=== PATIENT | male | born 1990 | race Caucasian/White ===

== ENCOUNTER 2023-08-28 17:20 | Emergency (ER) | payer BC, OTHER ==
--- NOTE | 2023-08-28 17:32 | ED ---
Lower Extremity Injury HPI - General Source: patient, RN notes reviewed Mode of arrival: ambulatory Limitations: no limitations <Karlie Richardson - Last Filed: 08/28/23 17:31> - General Source: RN notes reviewed <Belai Bear - Last Filed: 08/28/23 20:36> - General Chief Complaint: Extremity Injury, Lower Stated Complaint: L Foot Injury-stepped on nail Time Seen by Provider: 08/28/23 17:32 - History of Present Illness Initial Comments: Quick note: 33-year-old male presented to the ER with a chief complaint of left foot injury. Patient was working out in the ER and accidentally stepped on a derrick nail. He was wearing a croc during the incident. Tetanus status unknown. (Karlie Richardson) 33-year-old male presenting to the ER with chief complaint of left foot injury. States he was working in his yard and accidentally stepped on a derrick nail. He was wearing crocs during the incident but reports the nail penetrated through the shoe and into the bottom of his foot. Last tetanus unknown. He is able to bear weight. (Belia Bear) - Related Data Previous Rx's Medication Instructions Recorded Levofloxacin [Levaquin] 750 mg PO DAILY 5 Days #5 tab 08/28/23 amLODIPine 10 mg PO DAILY 30 Days #30 tab 08/28/23 Allergies Allergy/AdvReac Type Severity Reaction Status Date / Time bacitracin Allergy Unknown Rash/Hives Verified 08/28/23 17:30 Review of Systems ROS Other: All systems not noted in ROS Statement are negative. <Karlie Richardson - Last Filed: 08/28/23 17:31> ROS Other: All systems not noted in ROS Statement are negative. <Belia Bear - Last Filed: 08/28/23 20:36> ROS Statement: Those systems with pertinent positive or pertinent negative responses have been documented in the HPI. Past Medical History Past Medical History: No Reported History History of Any Multi-Drug Resistant Organisms: None Reported Past Surgical History: No Surgical Hx Reported Past Psychological History: No Psychological Hx Reported Past Alcohol Use History: Occasional Past Drug Use History: None Reported <Karlie Richardson - Last Filed: 08/28/23 17:31> General Exam Limitations: no limitations <Karlie Richardson - Last Filed: 08/28/23 17:31> General appearance: alert, in no apparent distress Head exam: Present: atraumatic, normocephalic, normal inspection Left Ankle exam: Present: normal inspection, full ROM. Absent: tenderness, swelling Foot/Toe exam: Present: full ROM, puncture wound (Pinpoint puncture wound present on ventral aspect of left foot with minimal dried blood surrounding wound.). Absent: tenderness, laceration, foreign body Neurovascular tendon exam: Present: no vascular compromise. Absent: abnormal cap refill, sensory deficit <Belia Bear - Last Filed: 08/28/23 20:36> - General Exam Comments Initial Comments: Visual Physical Exam Vital signs reviewed General: Well-appearing, nontoxic, no acute distress. Head: Normocephalic, atraumatic Eyes: PERRLA, EOMI ENT: Airway patent Chest: Nonlabored breathing Skin: No visual rash, normal skin tone Neuro: Alert and oriented 3 Musculoskeletal: No gross abnormalities (Karlie Richardson) Course Vital Signs 08/28/23 08/28/23 17:28 20:06 Temperature 98.5 F Pulse Rate 79 84 Respiratory 18 20 Rate Blood Pressure 181/133 194/146 O2 Sat by Pulse 98 99 Oximetry Medical Decision Making <Karlie Richardson - Last Filed: 08/28/23 17:31> <Belia Bear - Last Filed: 08/28/23 20:36> - Medical Decision Making I performed the quick note portion of this chart. Electronically signed by Karlie Richardson PA-C (Karlie Richardson) Was pt. sent in by a medical professional or institution ([facility], CASING WORKER, urgent care, hospital, or usp...) When possible be specific @ -No Did you speak to anyone other than the patient for history (EMS, parent, family, police, friend...)? What history was obtained from this source @ -No Did you review nursing and triage notes (agree or disagree)? Why? @ -I reviewed and agree with nursing and triage notes Were old charts reviewed (outside hosp., previous admission, EMS record, old EKG, old radiological studies, urgent care reports/EKG's, usp records)? Report findings @ -No old charts were reviewed Differential Diagnosis (chest pain, altered mental status, abdominal pain women, abdominal pain men, vaginal bleeding, weakness, fever, dyspnea, syncope, headache, dizziness, GI bleed, back pain, seizure, CVA, palpatations, mental health, musculoskeletal)? @ -Differential Musculoskeletal Laceration, puncture wound, muscular strain, contusion, ligament sprain, fracture, arthritis, septic arthritis, bursitis, cellulitis, muscle spasm, nerve compression, DVT, arterial occlusion, herpes zoster, electrolyte abnormality, tumor.... This is not meant to be in all inclusive list EKG interpreted by me (3pts min.). @ -None X-rays interpreted by me (1pt min.). @ -X-ray of left foot revealed no radiopaque foreign body CT interpreted by me (1pt min.). @ -None done U/S interpreted by me (1pt. min.). @ -None done What testing was considered but not performed or refused? (CT, X-rays, U/S, labs)? Why? @ -None What meds were considered but not given or refused? Why? @ -None Did you discuss the management of the patient with other professionals (professionals i.e. , PA, CASING WORKER, lab, RT, psych nurse, social worker health services, rope making machine operator, teacher, operations officer, airport location manager)? Give summary @ -No Was smoking cessation discussed for >3mins.? @ -No Was critical care preformed (if so, how long)? @ -No Were there social determinants of health that impacted care today? How? (Homelessness, low income, unemployed, alcoholism, drug addiction, transportation, low edu. Level, literacy, decrease access to med. care, fdc, rehab)? @ -No Was there de-escalation of care discussed even if they declined (Discuss DNR or withdrawal of care, Hospice)? DNR status @ -No What co-morbidities impacted this encounter? (DM, HTN, Smoking, COPD, CAD, Cancer, CVA, ARF, Chemo, Hep., AIDS, mental health diagnosis, sleep apnea, morbid obesity)? @ -None Was patient admitted / discharged? Hospital course, mention meds given and route, prescriptions, significant lab abnormalities, going to OR and other pertinent info. @ -Patient was discharged. Patient was seen and evaluated for puncture wound of left foot prior to arrival. Patient reports he accidentally stepped on a derrick nail. Vital signs are remarkable for blood pressure of 181/133. Patient denies any cardiopulmonary alarm symptoms. Patient is neurovascularly intact. X-ray of left foot revealed no radiopaque foreign body. Wound was thoroughly irrigated and soaked in iodine/saline solution. Tetanus was updated. Wound was dressed and wound care was discussed. Patient was prescribed levofloxacin. Repeat blood pressure is 194/146. Patient denies any history of hypertension. Patient was given oral dose of amlodipine. Strict cardiopulmonary alarm symptoms discussed with patient in detail and he shows understanding/ agrees to plan. Prescribed a month's supply of amlodipine and advised to follow-up with PCP as soon as possible. Discussed with patient the importance of obtaining control of blood pressure. Advised to monitor blood pressure at home with monitor. Case discussed with my ER attending Dr. Garces. Patient discharged in stable condition. Undiagnosed new problem with uncertain prognosis? @ -No Drug Therapy requiring intensive monitoring for toxicity (Heparin, Nitro, Insulin, Cardizem)? @ -No Were any procedures done? @ -No Diagnosis/symptom? @ -Puncture wound of left foot Acute, or Chronic, or Acute on Chronic? @ -Acute Uncomplicated (without systemic symptoms) or Complicated (systemic symptoms)? @ -Uncomplicated Side effects of treatment? @ -No Exacerbation, Progression, or Severe Exacerbation? @ -No Poses a threat to life or bodily function? How? (Chest pain, [place], [place], pneumonia, PE, COPD, DKA, ARF, appy, cholecystitis, CVA, Diverticulitis, Homicidal, Suicidal, threat to staff... and all critical care pts) @ -Low likelihood (Belia Bear) Disposition <Karlie Richardson - Last Filed: 08/28/23 17:31> Is patient prescribed a controlled substance at d/c from ED?: No Time of Disposition: 20:32 <Belia Bear - Last Filed: 08/28/23 20:36> Clinical Impression: Puncture wound of left foot, Hypertension Disposition: HOME SELF-CARE Condition: Stable Instructions (If sedation given, give patient instructions): Puncture Wound (ED), Hypertension (ED) Additional Instructions: Please take full course of levofloxacin. Take amlodipine daily for blood pressure. Please obtain blood pressure monitor (sold at most pharmacies) and log your blood pressure daily. Follow-up with PCP as soon as possible regarding blood pressure. Please return to the Emergency Department if symptoms worsen or any other concerns. Prescriptions: amLODIPine 10 mg PO DAILY 30 Days #30 tab Levofloxacin [Levaquin] 750 mg PO DAILY 5 Days #5 tab Referrals: None,Stated [Primary Care Provider] - 1-2 days
[2023-08-28] MEDS: DIPH,PERTUS(ACELL)TETVAC-LF 0.5 ML VIAL IM ONE (18:19)
--- NOTE | 2023-08-28 18:58 | XR ---
EXAMINATION TYPE: XR foot complete LT DATE OF EXAM: 08/28/2023 5:50 PM CLINICAL INDICATION:Male, 33 years old with history of Stepped on a derrick nail; [facility] COMPARISON: None TECHNIQUE: XR foot complete LT examined in the AP, oblique, and lateral projections. FINDINGS: No evidence of any acute osseous pathology. No evidence of soft tissue swelling. No radiopaque forei gn body. IMPRESSION: 1. No evidence of acute fracture. 2. No radiopaque foreign body.
[2023-08-28] MEDS: amLODIPine 10 MG TAB PO STA ×2 (20:39→21:00)
[2023-08-28 20:48] VITALS: BP 168/109; PULSE 83; RESP 22; TEMP 98.4
== END 2023-08-28 21:01 | disposition home or self-care (01) ==
LOC: EC 17:20
DX: S91.332A Puncture wound without foreign body, left foot, initial encounter (principal); I10 Essential (primary) hypertension; Z88.1 Allergy status to other antibiotic agents; Z23 Encounter for immunization; W45.0XXA Nail entering through skin, initial encounter; Y93.H2 Activity, gardening and landscaping; Y92.017 Garden or yard in single-family (private) house as the place of occurrence of the external cause
CPT/HCPCS: 90471; 90715; 99283

== ENCOUNTER 2023-09-19 16:51 | Emergency (ER) | payer BC, OTHER ==
--- NOTE | 2023-09-19 18:25 | ED ---
Nausea/Vomiting/Diarrhea HPI <Petra Marquez - Last Filed: 09/19/23 18:35> - General Source: patient, RN notes reviewed, old records reviewed Mode of arrival: ambulatory Limitations: no limitations <Spenser Bills - Last Filed: 09/19/23 21:15> - General Chief complaint: Nausea/Vomiting/Diarrhea Stated complaint: vomiting Time Seen by Provider: 09/19/23 17:51 - History of Present Illness Initial comments: 33-year-old male presents to the emergency department for evaluation of nausea and vomiting. Patient states that this started last night. He has had 3 episodes of vomiting. He states that over the past 2 days he has not had much of an appetite and does not eaten much. He does report that he was drinking soda and fells that he vomited this up. He denies any significant abdominal pain. (Petra Marquez) QN 33 male to the ER for evaluation today. Patient is presenting to the emergency room today for evaluation of nausea vomiting, patient presents with father who is very unhappy with his son being in the emergency department at this time, the son does think that he may have food poisoning of some sort. (Spenser Bills) - Related Data Previous Rx's Medication Instructions Recorded Levofloxacin [Levaquin] 750 mg PO DAILY 5 Days #5 tab 08/28/23 amLODIPine 10 mg PO DAILY 30 Days #30 tab 08/28/23 Allergies Allergy/AdvReac Type Severity Reaction Status Date / Time bacitracin Allergy Unknown Rash/Hives Verified 09/19/23 17:02 Review of Systems ROS Other: All systems not noted in ROS Statement are negative. <Petra Marquez - Last Filed: 09/19/23 18:35> ROS Other: All systems not noted in ROS Statement are negative. <Spenser Bills - Last Filed: 09/19/23 21:15> ROS Statement: Those systems with pertinent positive or pertinent negative responses have been documented in the HPI. Past Medical History Past Medical History: No Reported History History of Any Multi-Drug Resistant Organisms: None Reported Past Surgical History: No Surgical Hx Reported Past Psychological History: No Psychological Hx Reported Smoking Status: Never smoker Past Alcohol Use History: Occasional Past Drug Use History: None Reported <Spenser Bills - Last Filed: 09/19/23 21:15> General Exam Limitations: no limitations General appearance: alert, in no apparent distress Head exam: Present: atraumatic, normocephalic, normal inspection Eye exam: Present: normal appearance, PERRL, EOMI. Absent: scleral icterus, conjunctival injection, periorbital swelling ENT exam: Present: normal exam, mucous membranes moist Neck exam: Present: normal inspection. Absent: tenderness, meningismus, lymphadenopathy Respiratory exam: Present: normal lung sounds bilaterally. Absent: respiratory distress, wheezes, rales, rhonchi, stridor Cardiovascular Exam: Present: regular rate, normal rhythm, normal heart sounds. Absent: systolic murmur, diastolic murmur, rubs, gallop, clicks GI/Abdominal exam: Present: soft, normal bowel sounds. Absent: distended, tenderness, guarding, rebound, rigid Extremities exam: Present: normal inspection, full ROM, normal capillary refill. Absent: tenderness, pedal edema, joint swelling, calf tenderness Back exam: Present: normal inspection Neurological exam: Present: alert, oriented X3 Psychiatric exam: Present: normal affect, normal mood Skin exam: Present: warm, dry, intact, normal color. Absent: rash <Petra Marquez - Last Filed: 09/19/23 18:35> Limitations: no limitations General appearance: alert, in no apparent distress Head exam: Present: atraumatic, normocephalic, normal inspection Eye exam: Present: normal appearance, PERRL, EOMI. Absent: scleral icterus, conjunctival injection, periorbital swelling ENT exam: Present: normal exam, mucous membranes moist Neck exam: Present: normal inspection. Absent: tenderness, meningismus, lymphadenopathy Respiratory exam: Present: normal lung sounds bilaterally. Absent: respiratory distress, wheezes, rales, rhonchi, stridor Cardiovascular Exam: Present: regular rate, normal rhythm, normal heart sounds. Absent: systolic murmur, diastolic murmur, rubs, gallop, clicks GI/Abdominal exam: Present: soft, normal bowel sounds. Absent: distended, tenderness, guarding, rebound, rigid Extremities exam: Present: normal inspection, full ROM, normal capillary refill. Absent: tenderness, pedal edema, joint swelling, calf tenderness Back exam: Present: normal inspection Neurological exam: Present: alert, oriented X3, CN II-XII intact Psychiatric exam: Present: normal affect, normal mood Skin exam: Present: warm, dry, intact, normal color. Absent: rash <Spenser Bills - Last Filed: 09/19/23 21:15> Course <Spenser Bills - Last Filed: 09/19/23 21:15> Vital Signs 09/19/23 09/19/23 09/19/23 17:00 18:45 19:40 Temperature 97.6 F 98.2 F Pulse Rate 88 Respiratory 18 Rate Blood Pressure 159/90 O2 Sat by Pulse 99 Oximetry 09/19/23 20:12 Temperature Pulse Rate 75 Respiratory 18 Rate Blood Pressure 143/82 O2 Sat by Pulse Oximetry - Reevaluation(s) Reevaluation #1: 09/19/23 18:25 NQ completed by myself Dr Bills (Spenser Bills) Medical Decision Making <Petra Marquez - Last Filed: 09/19/23 18:35> - Lab Data Result diagrams: 09/19/23 18:32 09/19/23 18:32 <Spenser Bills - Last Filed: 09/19/23 21:15> - Medical Decision Making Was pt. sent in by a medical professional or institution (, PA, FLIGHT READINESS TECHNICIAN, urgent care, hospital, or detention...) When possible be specific @ -[No] Did you speak to anyone other than the patient for history (EMS, parent, family, police, friend...)? What history was obtained from this source @ -[No] Did you review nursing and triage notes (agree or disagree)? Why? @ -[I reviewed and agree with nursing and triage notes] Were old charts reviewed (outside hosp., previous admission, EMS record, old EKG, old radiological studies, urgent care reports/EKG's, detention records)? Report findings @ -[No old charts were reviewed] Differential Diagnosis (chest pain, altered mental status, abdominal pain women, abdominal pain men, vaginal bleeding, weakness, fever, dyspnea, syncope, headache, dizziness, GI bleed, back pain, seizure, CVA, palpatations, mental health, musculoskeletal)? @ -[Differential Abdominal Pain Men: Appendicitis, cholecystitis, diverticulosis, ischemic bowel, pancreatitis, hepatitis, UTI, gastroenteritis, AAA, incarcerated hernia, bowel obstruction, constipation, inflammatory bowel, hepatitis, peptic ulcer disease, splenic infarction, perforated viscus, testicular torsion, this is not meant to be an all-inclusive list ] EKG interpreted by me (3pts min.). @ -None X-rays interpreted by me (1pt min.). @ -[None done] CT interpreted by me (1pt min.). @ -[None done] U/S interpreted by me (1pt. min.). @ -[None done] What testing was considered but not performed or refused? (CT, X-rays, U/S, labs)? Why? @ -[None] What meds were considered but not given or refused? Why? @ -[None] Did you discuss the management of the patient with other professionals (richard mulligan i.e. , PA, FLIGHT READINESS TECHNICIAN, lab, RT, psych nurse, neonatal social worker, wire brush maker, teacher, chief lifestyle officer, returned case inspector)? Give summary @ -[No] Was smoking cessation discussed for >3mins.? @ -[No] Was critical care preformed (if so, how long)? @ -[No] Were there social determinants of health that impacted care today? How? (Homelessness, low income, unemployed, alcoholism, drug addiction, transportation, low edu. Level, literacy, decrease access to med. care, shelter, rehab)? @ -[No] Was there de-escalation of care discussed even if they declined (Discuss DNR or withdrawal of care, Hospice)? DNR status @ -[No] What co-morbidities impacted this encounter? (DM, HTN, Smoking, COPD, CAD, Cancer, CVA, ARF, Chemo, Hep., AIDS, mental health diagnosis, sleep apnea, morbid obesity)? @ -[None] Was patient admitted / discharged? Hospital course, mention meds given and route, prescriptions, significant lab abnormalities, going to OR and other pertinent info. @ -[Patient presented to the emergency department for evaluation of nausea, vomiting. Patient was provided IV fluids and medication for symptom control while in the emergency department. Laboratory studies pending.] Undiagnosed new problem with uncertain prognosis? @ -[No] Drug Therapy requiring intensive monitoring for toxicity (Heparin, Nitro, Insulin, Cardizem)? @ -[No] Were any procedures done? @ -[No] Diagnosis/symptom? @ -[default] Acute, or Chronic, or Acute on Chronic? @ -[default] Uncomplicated (without systemic symptoms) or Complicated (systemic symptoms)? @ -[default] Side effects of treatment? @ -[No] Exacerbation, Progression, or Severe Exacerbation? @ -[No] Poses a threat to life or bodily function? How? (Chest pain, [place], [place], pneumonia, PE, COPD, DKA, ARF, appy, cholecystitis, CVA, Diverticulitis, Homicidal, Martha cidal, threat to staff... and all critical care pts) @ -[No] (Petra Marquez) - Lab Data Lab Results 09/19/23 09/19/23 09/19/23 Range/Units 18:32 18:32 18:32 WBC 10.0 (3.8-10.6) k/uL RBC 4.00 L (4.30-5.90) m/uL Hgb 12.9 L (13.0-17.5) gm/dL Hct 39.0 (39.0-53.0) % MCV 97.5 (80.0-100.0) fL MCH 32.3 (25.0-35.0) pg MCHC 33.1 (31.0-37.0) g/dL RDW 12.6 (11.5-15.5) % Plt Count 209 (150-450) k/uL MPV 7.7 Neutrophils % (Manual) 83 % Lymphocytes % (Manual) 8 % Monocytes % (Manual) 7 % Basophils % (Manual) 2 % Neutrophils # (Manual) 8.30 H (1.3-7.7) k/uL Lymphocytes # (Manual) 0.80 L (1.0-4.8) k/uL Monocytes # (Manual) 0.70 (0-1.0) k/uL Basophils # (Manual) 0.20 (0-0.2) k/uL Nucleated RBCs 0 (0-0) /100 WBC Manual Slide Review Performed Stomatocytes Present Sodium 126 L (137-145) mmol/L Potassium 5.0 (3.5-5.1) mmol/L Chloride 88 L (98-107) mmol/L Carbon Dioxide 22 (22-30) mmol/L Anion Gap 16 mmol/L BUN 8 L (9-20) mg/dL Creatinine 0.66 (0.66-1.25) mg/dL Est GFR (CKD-EPI)AfAm >90 (>60 ml/min/1.73 sqM) Est GFR (CKD-EPI)NonAf >90 (>60 ml/min/1.73 sqM) Glucose 88 (74-99) mg/dL Calcium 9.4 (8.4-10.2) mg/dL Total Bilirubin 1.8 H (0.2-1.3) mg/dL AST 94 H (17-59) U/L ALT 47 (4-49) U/L Alkaline Phosphatase 71 (38-126) U/L Total Protein 7.8 (6.3-8.2) g/dL Albumin 5.1 H (3.5-5.0) g/dL Amylase 67 (30-110) U/L Lipase 54 (23-300) U/L Influenza Type A (PCR) Not Detected (Not Detectd) Influenza Type B (PCR) Not Detected (Not Detectd) RSV (PCR) Not Detected (Not Detectd) SARS-CoV-2 (PCR) Not Detected (Not Detectd) Disposition <Petra Marquez - Last Filed: 09/19/23 18:35> Is patient prescribed a controlled substance at d/c from ED?: No Time of Disposition: 21:05 <Spenser Bills - Last Filed: 09/19/23 21:15> Clinical Impression: Gastroenteritis Disposition: HOME SELF-CARE Condition: Good Instructions (If sedation given, give patient instructions): Acute Nausea and Vomiting (ED) Referrals: None,Stated [Primary Care Provider] - 1-2 days
[2023-09-19] MEDS: SODIUM CHLORIDE 0.9% 1,000 ML IV STA ×2 (18:36→20:06)
[2023-09-19] MEDS: ONDANSETRON 4 MG/2 ML VIAL IVP STA ×2 (18:52→20:12)
[2023-09-19 18:56] LABS: HGB 12.9 gm/dL (13.0-17.5); MCH 32.3 pg (25.0-35.0); MCHC 33.1 g/dL (31.0-37.0); MCV 97.5 fL (80.0-100.0); Mean Platelet Volume 7.7; Platelet Count 209 k/uL (150-450); RDW 12.6 % (11.5-15.5)
[2023-09-19 19:11] LABS: ALT 47 U/L (4-49); AST 94 U/L (17-59); African American GFR (CKD) >90 (>60 ml/min/1.73 sqM); Albumin 5.1 g/dL (3.5-5.0); Alkaline Phosphatase 71 U/L (38-126); Amylase 67 U/L (30-110); Anion Gap 16 mmol/L; Blood Urea Nitrogen 8 mg/dL (9-20); Calcium 9.4 mg/dL (8.4-10.2); Carbon Dioxide 22 mmol/L (22-30); Chloride 88 mmol/L (98-107); Glucose 88 mg/dL (74-99); Lipase 54 U/L (23-300); Non-African American GFR(CKD) >90 (>60 ml/min/1.73 sqM); Sodium 126 mmol/L (137-145); Total Bilirubin 1.8 mg/dL (0.2-1.3); Total Protein 7.8 g/dL (6.3-8.2)
[2023-09-19 19:40] VITALS: RESP 18
[2023-09-19 19:45] LABS: Neutrophils % (M) 83 %; Nucleated Red Blood Cells 0 /100 WBC (0-0); Total Cells Counted 100
[2023-09-19 19:46] LABS: Stomatocytes Present
[2023-09-19] MEDS: SODIUM CHLORIDE 0.9% 500 ML 500 ML IV STA (20:08)
[2023-09-19] MEDS: ONDANSETRON 4 MG ODT STARTER PACK 2 TAB BTL PO STA (20:12)
[2023-09-19] MEDS: PANTOPRAZOLE 40 MG/10 ML VIAL IVP STA (22:00)
[2023-09-19 22:11] VITALS: BP 141/81; PULSE 81; TEMP 97.9
== END 2023-09-19 22:11 | disposition home or self-care (01) ==
LOC: EC 16:51
DX: K52.9 Noninfective gastroenteritis and colitis, unspecified (principal); Z88.8 Allergy status to other drugs, medicaments and biological substances
CPT/HCPCS: 36415; 80053; 82150; 83690; 85025; 87636; 99284; 96374; 96376; 96361 ×2; J2405; S0119

== ENCOUNTER 2024-07-06 22:08 | Emergency (ER) | payer BC ==
--- NOTE | 2024-07-06 23:02 | ED ---
General Adult HPI - General Chief complaint: ENT Stated complaint: tongue bleeding Time Seen by Provider: 07/06/24 22:20 Source: patient, RN notes reviewed Mode of arrival: ambulatory Limitations: no limitations - History of Present Illness Initial comments: This is a 33-year-old male presenting for bleeding after biting tongue x 1 hour ago. Patient states he is unable to stop the bleeding. Denies use of blood thinners or associated pain. Onset/Timin -: hour(s) - Related Data Previous Rx's Medication Instructions Recorded Levofloxacin [Levaquin] 750 mg PO DAILY 5 Days #5 tab 08/28/23 amLODIPine 10 mg PO DAILY 30 Days #30 tab 08/28/23 Allergies Allergy/AdvReac Type Severity Reaction Status Date / Time bacitracin Allergy Unknown Rash/Hives Verified 09/19/23 17:02 Review of Systems ROS Statement: Those systems with pertinent positive or pertinent negative responses have been documented in the HPI. ROS Other: All systems not noted in ROS Statement are negative. Past Medical History Past Medical History: No Reported History History of Any Multi-Drug Resistant Organisms: None Reported Past Surgical History: No Surgical Hx Reported Past Psychological History: No Psychological Hx Reported Smoking Status: Never smoker Past Alcohol Use History: Occasional Past Drug Use History: None Reported General Exam Limitations: no limitations General appearance: alert, in no apparent distress Head exam: Present: atraumatic, normocephalic, normal inspection Eye exam: Present: normal appearance, PERRL, EOMI. Absent: scleral icterus, conjunctival injection, periorbital swelling ENT exam: Present: mucous membranes moist, other (Small hematoma with capillary bleeding noted in mid tongue without obvious laceration, abrasion or other open wound. No bleeding noted on underside of tongue) Neck exam: Present: normal inspection. Absent: tenderness, meningismus, lymphadenopathy Respiratory exam: Present: normal lung sounds bilaterally. Absent: respiratory distress, wheezes, rales, rhonchi, stridor Cardiovascular Exam: Present: regular rate, normal rhythm, normal heart sounds. Absent: systolic murmur, diastolic murmur, rubs, gallop, clicks GI/Abdominal exam: Present: soft, normal bowel sounds. Absent: distended, tenderness, guarding, rebound, rigid Extremities exam: Present: normal inspection, full ROM, normal capillary refill. Absent: tenderness, pedal edema, joint swelling, calf tenderness Back exam: Present: normal inspection Neurological exam: Present: alert, oriented X3, CN II-XII intact Psychiatric exam: Present: normal affect, normal mood Skin exam: Present: warm, dry, intact, normal color. Absent: rash Course Vital Signs 07/06/24 07/07/24 22:14 01:56 Temperature 98.5 F 98.3 F Pulse Rate 88 81 Respiratory 19 17 Rate Blood Pressure 165/93 130/76 O2 Sat by Pulse 99 100 Oximetry Medical Decision Making - Medical Decision Making Was pt. sent in by a medical professional or institution (, PA, [facility], urgent care, hospital, or residential...) When possible be specific @ -No Did you speak to anyone other than the patient for history (EMS, parent, family, police, friend...)? What history was obtained from this source @ -No Did you review nursing and triage notes (agree or disagree)? Why? @ -I reviewed and agree with nursing and triage notes Were old charts reviewed (outside hosp., previous admission, EMS record, old EKG, old radiological studies, urgent care reports/EKG's, residential records)? Report findings @ -No old charts were reviewed Differential Diagnosis (chest pain, altered mental status, abdominal pain women, abdominal pain men, vaginal bleeding, weakness, fever, dyspnea, syncope, headache, dizziness, GI bleed, back pain, seizure, CVA, palpatations, mental health, musculoskeletal)? @ -Differential Musculoskeletal Muscular strain, contusion, ligament sprain, fracture, arthritis, septic arthritis, bursitis, cellulitis, muscle spasm, nerve compression, DVT, arterial occlusion, herpes zoster, electrolyte abnormality, tumor.... This is not meant to be in all inclusive list EKG interpreted by me (3pts min.). @ -Not done X-rays interpreted by me (1pt min.). @ -None done CT interpreted by me (1pt min.). @ -None done U/S interpreted by me (1pt. min.). @ -None done What testing was considered but not performed or refused? (CT, X-rays, U/S, labs)? Why? @ -None What meds were considered but not given or refused? Why? @ -Silver nitrate stick applicator initially considered but not utilized. Did you discuss the management of the patient with other professionals (professionals i.e. , PA, [facility], lab, RT, psych nurse, social problems specialist, regional marketing director, teacher, traffic officer, geriatric case manager)? Give summary @ -No Was smoking cessation discussed for >3mins.? @ -No Was critical care preformed (if so, how long)? @ -No Were there social determinants of health that impacted care today? How? (Homelessness, low income, unemployed, alcoholism, drug addiction, transportation, low edu. Level, literacy, decrease access to med. care, detention, rehab)? @ -No Was there de-escalation of care discussed even if they declined (Discuss DNR or withdrawal of care, Hospice)? DNR status @ -No What co-morbidities impacted this encounter? (DM, HTN, Smoking, COPD, CAD, Cancer, CVA, ARF, Chemo, Hep., AIDS, mental health diagnosis, sleep apnea, morbid obesity)? @ -None Was patient admitted / discharged? Hospital course, mention meds given and route, prescriptions, significant lab abnormalities, going to OR and other pertinent info. @ -Silver nitrate stick applicator initially considered but not utilized. Advised patient to apply ice cube/popsicle to bleeding site to stem flow bleeding. Following persistent application for the past hour, bleeding subsided substantially. Advised patient to continue ice/popsicle application upon discharge to ensure bleeding does not resume. Discussed patient with Dr. Bills. Undiagnosed new problem with uncertain prognosis? @ -No Drug Therapy requiring intensive monitoring for toxicity (Heparin, Nitro, Insulin, Cardizem)? @ -No Were any procedures done? @ -No Diagnosis/symptom? @ -Hemorrhage of tongue Acute, or Chronic, or Acute on Chronic? @ -Acute Uncomplicated (without systemic symptoms) or Complicated (systemic symptoms)? @ -Uncomplicated Side effects of treatment? @ -No Exacerbation, Progression, or Severe Exacerbation? @ -No Poses a threat to life or bodily function? How? (Chest pain, [place], [place], pneumonia, PE, COPD, DKA, ARF, appy, cholecystitis, CVA, Diverticulitis, Homicidal, Suicidal, threat to staff... and all critical care pts) @ -No Disposition Clinical Impression: Hemorrhage of tongue Disposition: HOME SELF-CARE Condition: Good Instructions (If sedation given, give patient instructions): Bleeding Disorders (ED) Additional Instructions: Continue applying ice cubes and popsicles to affected area of tongue as needed. Return to ER if experiencing dizziness, lightheadedness. Is patient prescribed a controlled substance at d/c from ED?: No Referrals: None,Stated [Primary Care Provider] - 1-2 days Sanjay Castañeda MD [STAFF PHYSICIAN] - 1-2 days Time of Disposition: 11:45
[2024-07-06] MEDS: SILVER NITRATE APPLICATOR 1 EACH STICK..EA. TOPICAL STA (23:03)
[2024-07-07 01:59] VITALS: BP 130/76; PULSE 81; RESP 17; TEMP 98.3
== END 2024-07-07 01:59 | disposition home or self-care (01) ==
LOC: EC 22:08
DX: K14.8 Other diseases of tongue (principal); Z88.2 Allergy status to sulfonamides
CPT/HCPCS: 99283